=== PATIENT | male | born 1955 | race Caucasian/White ===

== ENCOUNTER 2017-04-21 15:16 | Inpatient (IN) | payer MEDICARE ==
[~2017-04-21] VITALS: Ht 172.7 cm; Wt 70.8 kg
[2017-04-21 16:04] LABS: HEMOGLOBIN 14.5 gm/dl (14.0-17.5); RED BLOOD COUNT 4.94 M/UL (4.20-5.50); WHITE BLOOD COUNT 25.6 K/UL (4.5-11.0)
[2017-04-21 17:56] LABS: BUN/CREATININE RATIO 20 (0-10)
[2017-04-22] MEDS ORDERED: LOPRESSOR50 MG PO (00:39)
[2017-04-22] MEDS ORDERED: PSEUDOEPHEDRIN120 MG PO (00:41)
[2017-04-22] MEDS ORDERED: FERROUS SULFAT325 M2 PO (00:42)
[2017-04-22] MEDS ORDERED: NEURONTIN 400400 MG PO (00:42)
[2017-04-22] MEDS ORDERED: LORATADINE-PSE1 EACH PO (00:43)
[2017-04-22] MEDS ORDERED: VENTOLIN HFA 66.7 GM INH (00:43)
[2017-04-22] MEDS ORDERED: DALIRESP500 MCG PO (00:44)
[2017-04-22] MEDS ORDERED: CARBIDOPA-LEVO1 EACH PO (00:45)
[2017-04-22] MEDS ORDERED: IBUPROFEN800 MG PO (00:45)
[2017-04-22] MEDS ORDERED: ZESTRIL/PRINIVI10 MG PO (00:46)
[2017-04-22] MEDS ORDERED: LAMICTAL TAB 2525 MG PO (00:46)
[2017-04-22] MEDS ORDERED: TAB-A-VITE1 EACH PO (00:48)
[2017-04-22 05:35] LABS: HEMOGLOBIN 12.5 gm/dl (14.0-17.5); RED BLOOD COUNT 4.25 M/UL (4.20-5.50); WHITE BLOOD COUNT 16.2 K/UL (4.5-11.0)
[2017-04-22 05:54] LABS: BUN/CREATININE RATIO 23 (0-10)
[2017-04-22] MEDS ORDERED: COMBIVENT RESPIM4 GM PO (09:50)
[2017-04-22] MEDS ORDERED: IPRAT-ALBUT 0.5-3 ML INH (10:10)
[2017-04-22] MEDS ORDERED: MONTELUKAST SOD10 MG PO (10:12)
[2017-04-22] MEDS ORDERED: THEOPHYLLINE400 MG PO (10:13)
[2017-04-22] MEDS ORDERED: DULERA 200 MCG8.8 GM INH (10:14)
[2017-04-22] MEDS ORDERED: TRAZODONE HCL50 MG PO (10:15)
[2017-04-25] MEDS ORDERED: LEVAQUIN750 MG PO (10:50)
[2017-04-25] MEDS ORDERED: MEDROL DOSEPAK 24 MG PO (10:53)
== END 2017-04-25 13:19 | disposition home or self-care (01) | DRG 189 ==
LOC: ER1 15:16 → CCU 20:19 → M/S 20:19 → ZEROF 20:19 → CCU 04-22 00:22 → M/S 04-23 20:48
PROVIDERS: Emergency Medicine; ADMIT Hospitalist
DX: J96.21 Acute and chronic respiratory failure with hypoxia (principal); J18.9 Pneumonia, unspecified organism; J44.0 Chronic obstructive pulmonary disease with (acute) lower respiratory infection; J44.1 Chronic obstructive pulmonary disease with (acute) exacerbation; J84.10 Pulmonary fibrosis, unspecified; I10 Essential (primary) hypertension; D64.9 Anemia, unspecified; G89.4 Chronic pain syndrome; M54.5 Low back pain; F17.210 Nicotine dependence, cigarettes, uncomplicated; E88.09 Other disorders of plasma-protein metabolism, not elsewhere classified; Z91.19 Patient's noncompliance with other medical treatment and regimen; Z99.81 Dependence on supplemental oxygen; Z79.1 Long term (current) use of non-steroidal anti-inflammatories (NSAID); Z79.899 Other long term (current) drug therapy; Z90.49 Acquired absence of other specified parts of digestive tract; Z98.890 Other specified postprocedural states
CPT/HCPCS: ECHO; 36415; 36600; 71010; 71020; 80053; 80061; 80202; 82550; 82553; 82803; 83605; 83874; 84484; 85025; 85379; 87040; 87070; 87081; 87205; 93005; 93306; 94640; 94664; 96365; 96366; 96367; 96375; 99285; C9113; J1450; J1650; J2270; J2405; J2543; J2920; J2930; J3370; J7030; J7050; J7070; J7509; Q9963

== ENCOUNTER 2021-06-21 14:13 | Emergency (ER) | payer OTHER ==
[~2021-06-21 14:13] MED LIST: ACID CONTROLLER20 MG PO; BREO ELLIPTA 11 EACH INH; CARBIDOPA-LEVO1 EACH PO; CATAPRES 0.1MG0.1 MG PO; CHANTIX1 MG PO; COMBIVENT RESPIM4 GM PO; DALIRESP500 MCG PO; DULERA 200 MCG8.8 GM INH; FERROUS SULFAT325 M2 PO; FLONASE 0.05% N16 GM; HYDRALAZINE HCL50 MG PO; HYDROCODON-ACE1 EAC4 PO; IBU600 MG PO; IBUPROFEN800 MG PO; INCRUSE ELLI62.5 MCG INH; IPRAT-ALBUT 0.5-3 ML INH; KEFLEX500 MG PO; KENALOG CREAM 015 GM TOP; KLONOPIN1 MG PO; LAMICTAL TAB 2525 MG PO; LEVAQUIN750 MG PO; LOPRESSOR50 MG PO; LORATADINE-PSE1 EACH PO; MEDROL DOSEPAK 24 MG PO; METOPROLOL SUC100 MG PO; MONTELUKAST SOD10 MG PO; NABUMETONE750 MG PO; NEURONTIN 400400 MG PO; NORVASC10 MG PO; OMEPRAZOLE20 M1 PO; PREDNISONE 10 M10 MG PO; PREDNISONE 50 M50 MG PO; PROAIR DIGIHAL90 MCG INH; PSEUDOEPHEDRIN120 MG PO; QUETIAPINE FUMA50 MG PO; ROBAFEN100 MG/5 M PO; SPIRIVA RESPIMAT4 GM INH; SYMBICORT 160-1 INHA INH; SYMBICORT 16010.2 GM INH; TAB-A-VITE1 EACH PO; THEOPHYLLINE400 MG PO; TOPROL XL 50 MG50 MG PO; TRAZODONE HCL50 MG PO; ULTRAM50 MG PO; VIBRAMYCIN100 MG PO; VITAMIN B-121000 MC3 PO; VITAMIN C500 M4 PO; ZESTRIL20 MG PO; ZOLOFT50 MG PO
[2021-06-21 14:25] LABS: HEMOGLOBIN 15.4 gm/dl (14.0-17.5); RED BLOOD COUNT 4.97 M/UL (4.20-5.50)
[2021-06-21 14:46] LABS: BUN/CREATININE RATIO 12 (0-10)
[2021-06-21] MEDS ORDERED: CEFUROXIME500 MG PO (17:30)
[2021-06-21] MEDS ORDERED: MEDROL4 MG PO (17:30)
== END 2021-06-21 17:40 | disposition home or self-care (01) ==
LOC: ER1 14:13
PROVIDERS: Preventive Medicine Occupational Medicine
DX: J44.1 Chronic obstructive pulmonary disease with (acute) exacerbation (principal); I10 Essential (primary) hypertension; F17.210 Nicotine dependence, cigarettes, uncomplicated; Z20.822 Contact with and (suspected) exposure to COVID-19
CPT/HCPCS: 36600; 71045; 80053; 82550; 82553; 82803; 83690; 83874; 83880; 84484; 85025; 85652; 86140; 93005; 94664; 96374; 96375; 99285; J0696; J2930; U0002

== ENCOUNTER 2022-04-03 20:44 | Inpatient (IN) | payer OTHER ==
[~2022-04-03] VITALS: Ht 172.7 cm; Wt 64.0 kg
[~2022-04-03 20:44] MED LIST changes: +CEFUROXIME500 MG PO; +KLONOPIN0.5 MG PO; -KLONOPIN1 MG PO; +MEDROL4 MG PO; -NEURONTIN 400400 MG PO; +NEURONTIN800 MG PO; -OMEPRAZOLE20 M1 PO; +OMEPRAZOLE20 MG PO; +QUETIAPINE FUMA25 MG PO; -QUETIAPINE FUMA50 MG PO; +ZOLOFT100 MG PO; -ZOLOFT50 MG PO
[2022-04-03 21:39] LABS: HEMOGLOBIN 13.7 gm/dl (14.0-17.5); RED BLOOD COUNT 4.61 M/UL (4.20-5.50); WHITE BLOOD COUNT 14.7 K/UL (4.5-11.0)
[2022-04-03 22:04] LABS: BUN/CREATININE RATIO 15 (0-10)
[2022-04-04 02:38] LABS: HEMOGLOBIN 12.3 gm/dl (14.0-17.5); RED BLOOD COUNT 4.25 M/UL (4.20-5.50); WHITE BLOOD COUNT 12.3 K/UL (4.5-11.0)
[2022-04-04 02:55] LABS: BUN/CREATININE RATIO 20 (0-10)
[2022-04-04] MEDS ORDERED: ATORVASTATIN CA40 MG PO (11:03)
[2022-04-04] MEDS ORDERED: BUSPIRONE HCL10 MG PO (11:04)
[2022-04-04] MEDS ORDERED: PROCTOCREAM-HC30 GM TOP (11:08)
[2022-04-04] MEDS ORDERED: LORATADINE10 MG PO (11:09)
[2022-04-04] MEDS ORDERED: PREDNISONE5 MG PO (11:11)
[2022-04-04] MEDS ORDERED: PROAIR HFA8.5 GM INH (11:13)
[2022-04-04] MEDS ORDERED: ASCORBIC ACID500 MG PO (11:14)
[2022-04-04] MEDS ORDERED: IBU600 MG PO (11:17)
[2022-04-04] MEDS ORDERED: SYMBICORT 160-1 INHA INH (11:21)
[2022-04-04] MEDS ORDERED: ABILIFY5 MG PO (11:21)
[2022-04-04] MEDS ORDERED: FUROSEMIDE40 MG PO (11:23)
[2022-04-04] MEDS ORDERED: LOSARTAN POTASS50 MG PO (11:23)
[2022-04-04] MEDS ORDERED: METOPROLOL TART25 MG PO (11:24)
[2022-04-04] MEDS ORDERED: ASPIRIN EC81 MG PO (11:28)
[2022-04-04] MEDS ORDERED: DOCUSATE SODIU100 MG PO (11:29)
[2022-04-04] MEDS ORDERED: NITROGLYCERIN0.4 MG SL (11:29)
[2022-04-05 01:52] LABS: RED BLOOD COUNT 3.8 M/UL (4.20-5.50); WHITE BLOOD COUNT 8.5 K/UL (4.5-11.0)
[2022-04-05 02:08] LABS: BUN/CREATININE RATIO 33 (0-10)
[2022-04-05 02:44] LABS: CANDIDA ALBICANS Not Detected (Negative); ESCHERICHIA COLI Not Detected (Negative); HAEMOPHILUS INFLUENZAE Not Detected (Negative); KLEBSIELLA OXYTOCA Not Detected (Negative); KLEBSIELLA PNEUMONIAE Not Detected (Negative); KPC-CARBAPENEM-RESISTANCE GENE Not Detected (Negative); PROTEUS Not Detected (Negative); PSEUDOMONAS AERUGINOSA Not Detected (Negative); SERRATIA MARCESANS Not Detected (Negative); STAPHYLOCOCCUS AUREUS Not Detected (Negative); STREP AGALACTIAE (GROUP B) Not Detected (Negative); STREP PYOGENES (GROUP A) Not Detected (Negative); STREPTOCOCCUS Not Detected (Negative); vanA/B (VANCOMYCIN RESIST GENE Not Detected (Negative)
[2022-04-05 02:45] LABS: CANDIDA KRUSEI Not Detected (Negative); CANDIDA TROPICALIS Not Detected (Negative)
[2022-04-05 04:23] LABS: STAPHYLOCOCCUS DETECTED (Negative)
[2022-04-09 02:34] LABS: HEMOGLOBIN 12.5 gm/dl (14.0-17.5); RED BLOOD COUNT 4.34 M/UL (4.20-5.50); WHITE BLOOD COUNT 10.5 K/UL (4.5-11.0)
[2022-04-09 02:54] LABS: BUN/CREATININE RATIO 42 (0-10)
[2022-04-10 02:35] LABS: HEMOGLOBIN 11.5 gm/dl (14.0-17.5); RED BLOOD COUNT 3.99 M/UL (4.20-5.50); WHITE BLOOD COUNT 10.6 K/UL (4.5-11.0)
[2022-04-10 03:20] LABS: BUN/CREATININE RATIO 39 (0-10)
[2022-04-10 09:12] LABS: BUN/CREATININE RATIO 36 (0-10)
--- NOTE | 2022-04-10 22:59 | NUR ---
called pharmacy about patients buspirone and methylpredisolone dose oack. still waiting on methylpredisolone.
[2022-04-11 06:26] LABS: HEMOGLOBIN 11.6 gm/dl (14.0-17.5); RED BLOOD COUNT 3.99 M/UL (4.20-5.50); WHITE BLOOD COUNT 10.3 K/UL (4.5-11.0)
[2022-04-11 06:49] LABS: BUN/CREATININE RATIO 40 (0-10)
[2022-04-12] MEDS ORDERED: METOPROLOL SUC100 MG PO (14:18)
[2022-04-12] MEDS ORDERED: SPIRIVA HANDIH18 MCG INH (14:20)
[2022-04-12] MEDS ORDERED: AMOX TR-K CLV1 EAC4 PO (14:26)
[2022-04-12] MEDS ORDERED: DOXYCYCLINE HY100 M2 PO (14:40)
--- NOTE | 2022-04-12 14:43 | NUR ---
Patients belonging retrieved from pharmacy and security and given to sister with his approval and was witnessed by Katerin from case management.
== END 2022-04-12 15:32 | disposition home or self-care (01) | DRG 193 ==
LOC: ER1 20:44 → PROG CARE 22:42 → MED SURG 4 22:42 → CDU 22:42 → PROG CARE 04-04 01:34 → MED SURG 4 04-10 20:30
PROVIDERS: Emergency Medicine; Internal Medicine; ADMIT Internal Medicine
PROC: 5A09357 Assistance with Respiratory Ventilation, Less than 24 Consecutive Hours, Continuous Positive Airway Pressure (ICD-10-PCS; principal; 2022-04-03)
PROC: 5A09357 Assistance with Respiratory Ventilation, Less than 24 Consecutive Hours, Continuous Positive Airway Pressure (ICD-10-PCS; 2022-04-05)
PROC: 5A09357 Assistance with Respiratory Ventilation, Less than 24 Consecutive Hours, Continuous Positive Airway Pressure (ICD-10-PCS; 2022-04-06)
PROC: 5A0935A Assistance with Respiratory Ventilation, Less than 24 Consecutive Hours, High Flow/Velocity Cannula (ICD-10-PCS; 2022-04-08)
PROC: 5A09357 Assistance with Respiratory Ventilation, Less than 24 Consecutive Hours, Continuous Positive Airway Pressure (ICD-10-PCS; 2022-04-09)
PROC: 5A0935A Assistance with Respiratory Ventilation, Less than 24 Consecutive Hours, High Flow/Velocity Cannula (ICD-10-PCS; 2022-04-09)
PROC: 5A0945A Assistance with Respiratory Ventilation, 24-96 Consecutive Hours, High Flow/Velocity Cannula (ICD-10-PCS; 2022-04-09)
PROC: 5A09357 Assistance with Respiratory Ventilation, Less than 24 Consecutive Hours, Continuous Positive Airway Pressure (ICD-10-PCS; 2022-04-11)
DX: J18.9 Pneumonia, unspecified organism (principal); J96.21 Acute and chronic respiratory failure with hypoxia; Z20.822 Contact with and (suspected) exposure to COVID-19; J96.22 Acute and chronic respiratory failure with hypercapnia; E87.1 Hypo-osmolality and hyponatremia; E87.4 Mixed disorder of acid-base balance; J44.0 Chronic obstructive pulmonary disease with (acute) lower respiratory infection; R91.1 Solitary pulmonary nodule; B19.20 Unspecified viral hepatitis C without hepatic coma; G47.33 Obstructive sleep apnea (adult) (pediatric); I10 Essential (primary) hypertension; F41.9 Anxiety disorder, unspecified; F17.210 Nicotine dependence, cigarettes, uncomplicated; F32.A Depression, unspecified; E87.5 Hyperkalemia; E86.0 Dehydration; J44.9 Chronic obstructive pulmonary disease, unspecified; Z79.01 Long term (current) use of anticoagulants; Z79.82 Long term (current) use of aspirin; Z99.81 Dependence on supplemental oxygen; Z85.828 Personal history of other malignant neoplasm of skin; Z83.3 Family history of diabetes mellitus; Z82.0 Family history of epilepsy and other diseases of the nervous system; Z90.49 Acquired absence of other specified parts of digestive tract
CPT/HCPCS: 0241U; 36415; 36600; 71045; 71250; 80048; 80053; 81001; 82436; 82550; 82553; 82803; 83605; 83735; 83880; 84100; 84300; 84439; 84443; 84484; 85025; 85027; 85379; 85610; 86140; 87040; 87070; 87077; 87086; 87150; 87186; 87205; 93005; 93970; 94640; 94660; 94664; 94667; 94668; 94760; 96365; 96375; 97110; 97110-GP-CQ; 97116; 97116-GP-CQ; 97162; 97165; 97530; 97530-GP-CQ; 97535; 99285; G0378; J0360; J0696; J1650; J2920; J2930; J7070; U0002

== ENCOUNTER 2022-04-23 16:39 | Emergency (ER) | payer OTHER ==
[~2022-04-23 16:39] MED LIST changes: +ABILIFY5 MG PO; +AMOX TR-K CLV1 EAC4 PO; +ASCORBIC ACID500 MG PO; +ASPIRIN EC81 MG PO; +ATORVASTATIN CA40 MG PO; +BUSPIRONE HCL10 MG PO; +DOCUSATE SODIU100 MG PO; +DOXYCYCLINE HY100 M2 PO; +FUROSEMIDE40 MG PO; +LORATADINE10 MG PO; +LOSARTAN POTASS50 MG PO; +METOPROLOL TART25 MG PO; +NITROGLYCERIN0.4 MG SL; +PREDNISONE5 MG PO; +PROAIR HFA8.5 GM INH; +PROCTOCREAM-HC30 GM TOP; +SPIRIVA HANDIH18 MCG INH
[2022-04-23 17:12] LABS: HEMOGLOBIN 10.7 gm/dl (14.0-17.5); RED BLOOD COUNT 3.65 M/UL (4.20-5.50); WHITE BLOOD COUNT 10.5 K/UL (4.5-11.0)
[2022-04-23 17:37] LABS: BUN/CREATININE RATIO 38 (0-10)
== END 2022-04-24 12:50 | disposition home or self-care (01) ==
LOC: ER1 16:39
PROVIDERS: Family Medicine
DX: J44.1 Chronic obstructive pulmonary disease with (acute) exacerbation (principal); R09.02 Hypoxemia; F17.200 Nicotine dependence, unspecified, uncomplicated; R53.81 Other malaise; S20.219D Contusion of unspecified front wall of thorax, subsequent encounter; S40.022D Contusion of left upper arm, subsequent encounter; S40.021D Contusion of right upper arm, subsequent encounter; X58.XXXA Exposure to other specified factors, initial encounter; Z51.81 Encounter for therapeutic drug level monitoring
CPT/HCPCS: 36600; 71045; 80053; 82803; 83605; 83880; 85025; 85610; 87040; 93005; 96374; 99285; J2930